=== PATIENT | male | born 1985 | race Caucasian/White ===

== ENCOUNTER 2022-10-29 13:34 | Inpatient (IN) | payer MEDICAID, SELFPAY ==
[2022-10-29 13:35] VITALS: BP 110/97; PULSE 89; RESP 16; TEMP 36.8; O2SAT 98; BMI 28.5
--- NOTE | 2022-10-29 14:55 | EDS_ITS ---
HPI History of Present Illness Chief Complaint: Substance Abuse Detail of Chief Complaint: Opiates, amphetamines, alcohol abuse and tobacco use Informant: patient and friend Onset/Context/Timing Onset: - (2 to 3 years) Context: Sudden Onset Timing: Continuous Quality: Documented in the HPI narrative Location: Not applicable Current Severity: Moderate Maximum Severity: Moderate Worsened by: Associated with the wrong friends Relieved by: Nothing Associated Symptoms Associated Symptoms: Positive for rash*; Negative for vomiting*, diarrhea*, fever*, seizure, tremor, palpatations, change in mental status, trauma, suicidal ideation or homicidal ideation Narrative Narrative: Patient is a 37-year-old male with history of opiate, alcohol and amphetamine abuse. Patient states he at times smokes it or injects and is even ingested depending on the drug. Patient states he returned to the wrong friends 2 to 3 years ago. He is from the [facility]. He has had increased problems over the last several months. He moved to [place] because friends in this area and family in this area moved. He went to [place] where there were [facility] members. According to a friend who is known him for 9 to 10 years states that his aunt purchased him a bus ticket back to [place]. He states he last used yesterday. He injected heroin left antecubital fossa. The last time he was tested for hepatitis and HIV was a while ago. Tests were negative. He does report increased darkness to his urine. He has not been told that he appears yellow. He is concerned that he has sores on his feet. He denies fever, chills night sweats. He denies ocular, visual or auditory symptoms. He denies cardiac or respiratory symptoms. He denies GI symptoms. He is presently on no medication. He admits to smoking 1 pack/day. He admits to drinking a 12 pack/day. Prior similar symptoms: Yes Recent Illness/Hospitalization: No [facility] Medical History (Updated 10/29/22 @ 15:10 by Sanju Carrillo) Anxiety Depression Allergy/AdvReac Type Severity Reaction Status Date / Time Penicillins Allergy Rash Verified 10/29/22 13:38 Surgical History no surgical history no surgical history Social History (Updated 10/29/22 @ 15:[address] Christopher Blackmon MD) household members: none housing: homeless Smoking Status: Current every day smoker tobacco type: cigarettes alcohol intake: current alcohol intake frequency: 3 or more drinks per day substance use type: heroin and amphetamines ROS ROS ED Constitutional Constitutional ED: Denies chills, fever(s), subjective, sweats or weight loss Eyes Eyes: Denies blurry vision, change in vision or diplopia ENT ENT ED: Denies ear pain, rhinorrhea or sore throat Cardiovascular Cardiovascular: Denies chest pain, palpitations or racing heartbeat Respiratory/Chest Respiratory/Chest: Denies cough, dyspnea or dyspnea on exertion Gastrointestinal Gastrointestinal: Denies abdominal pain, diarrhea, nausea or vomiting Genitourinary Genitourinary ED: Denies dysuria or urinary frequency Musculoskeletal Musculoskeletal: Denies arthralgias, back pain, myalgias or neck pain Integumentary Reports rash; Denies abscess or Abrasions Neurologic Neurologic: Denies headache(s), paresthesias or weakness Psychiatric Psychiatric: Reports depression and other Details: Patient states he has a history of depression. He has not been on antidepressants for some time. He is uncertain whether he ever was diagnosed with schizoaffective disorder. According to friend he has been bouncing around and has had difficulty holding jobs. ; Denies anxiety Hematologic/Lymphatic Hematologic/Lymphatic: Denies easy bleeding or easy bruising EXAM Physical Exam Const Vital Signs: 10/29/22 13:35 Temperature 98.2 F Temperature Source Temporal Pulse Rate 89 Respiratory Rate 16 Blood Pressure 110/97 H Blood Pressure Mean 101 Pulse Ox 98 Oxygen Delivery Method Room Air Positive well nourished, well developed and unkempt General Appearance ED: unkempt, well developed and NAD; Negative for pallor HEENT Reports moist mucous membranes HEENT Narrative: Head is atraumatic normocephalic. Ears normal. Nares patent. Posterior pharynx out erythema or exudate. Patient does have eschar left side of his face. There is no obvious rash or evidence of infection. Eyes PERRL and EOMs intact bilaterally Eyes Narrative: There is no nystagmus. General Eye ED: Negative for pale conjunctiva or scleral icterus Neck no lymphadenopathy, supple and no JVD Lymph Lymphatic: no lymphadenopathy noted and lymphadenopathy Chest Wall inspection of chest normal and palpation of chest normal Resp normal respiratory effort and clear to auscultation bilaterally Cardio regular rate, regular rhythm, S1 normal heart sound, S2 normal heart sound and no murmurs GI soft to palpation, non-tender, non-distended and no masses Auscultation: hypoactive bowel sounds Back/Spine no CVA tenderness Thoracic Spine / Upper Back: Negative for thoracic spinal tenderness Lumbar Spine / Lower Back: Negative for lumbar spinal tenderness Extremity Extremity Narrative: Patient has ruptured blisters with mild erythema medial side of the right foot. There is no induration, warmth, lymphangitis or lymphadenopathy. Neuro oriented x3, CN's II-XII intact bilaterally and no sensory deficits noted Karthik Coma Scale: document GCS findings Spontaneous Obeys Commands Oriented 15 Sensorium / Orientation: alert Speech: speech normal Psych thought process normal Appearance: unkempt Skin Skin Narrative: Previously described under the extremity portion of the chart. General Skin Exam: Negative for jaundice, pallor or scars MDM MDM MDM Narrative Medical decision making narrative: Patient will require significant resources since he is presently homeless without job. He does have significant issues regarding drug dependency and alcoholism. Addiction order set was initiated. Will contact hospitalist for admission. Patient is aware that the facility is smoke-free. He states he will comply because he needs help. There are no old records for review. Lab Data Attestation: I reviewed the patient's lab results. Lab results narrative: CBC is unremarkable. Comprehensive metabolic panel does reveal elevated AST and ALT of 79 and 90 respectively. Alk phos is slight elevated 150. A Monge is less 0.0. Tox is positive for cocaine and cannabinoids. There is no opiate's or amphetamines noted. Labs: Laboratory Results - last 24 hr 10/29/22 10/29/22 10/29/22 15:15 15:15 15:15 WBC 10.3 RBC 4.41 L Hgb 14.8 Hct 45.2 MCV 102.5 H MCH 33.6 H MCHC 32.7 RDW Std Deviation 47.3 H RDW Coeff of Cathy 12.4 Plt Count 124 L MPV 11.0 Immature Gran % (Auto) 0.300 Neut % (Auto) 58.1 Lymph % (Auto) 31.9 [place] % (Auto) 7.4 Eos % (Auto) 1.6 Baso % (Auto) 0.7 Absolute Neuts (auto) 6.0 Absolute Lymphs (auto) 3.29 Nucleated RBC % 0 Sodium 142 Potassium 4.5 Chloride 109 H Carbon Dioxide 30.0 Anion Gap 3 L BUN 15 Creatinine 0.70 Estim Creat Clear Calc 156.88 Est GFR (MDRD) Af Amer 165 Est GFR (MDRD) Non-Af 137 BUN/Creatinine Ratio 21.5 H Glucose 95 Calcium 9.0 Total Bilirubin 0.80 AST 79 H ALT 90 H Alkaline Phosphatase 157 H Total Protein 7.1 Albumin 3.4 Globulin 3.7 Albumin/Globulin Ratio 0.9 Urine Opiates Screen Urine Methadone Screen Ur Barbiturates Screen Ur Phencyclidine Scrn Ur Amphetamines Screen MDMA (Ecstasy) Screen U Benzodiazepines Scrn Urine Cocaine Screen U Cannabinoids Screen Ur Drug Screen Comment Ethyl Alcohol < 3.0 10/29/22 15:15 WBC RBC Hgb Hct MCV MCH MCHC RDW Std Deviation RDW Coeff of Cathy Plt Count MPV Immature Gran % (Auto) Neut % (Auto) Lymph % (Auto) [place] % (Auto) Eos % (Auto) Baso % (Auto) Absolute Neuts (auto) Absolute Lymphs (auto) Nucleated RBC % Sodium Potassium Chloride Carbon Dioxide Anion Gap BUN Creatinine Estim Creat Clear Calc Est GFR (MDRD) Af Amer Est GFR (MDRD) Non-Af BUN/Creatinine Ratio Glucose Calcium Total Bilirubin AST ALT Alkaline Phosphatase Total Protein Albumin Globulin Albumin/Globulin Ratio Urine Opiates Screen NEGATIVE Urine Methadone Screen NEGATIVE Ur Barbiturates Screen NEGATIVE Ur Phencyclidine Scrn NEGATIVE Ur Amphetamines Screen NEGATIVE MDMA (Ecstasy) Screen NEGATIVE U Benzodiazepines Scrn NEGATIVE Urine Cocaine Screen POSITIVE H U Cannabinoids Screen POSITIVE H Ur Drug Screen Comment Ethyl Alcohol Rhythm Strip Rhythm Strip: Sinus Rhythm Rate: 84 Ectopy: None Discharge Plan Dx/Rx/DC Orders Clinical Impression: Opiate abuse, continuous, Drug abuse, amphetamine type, Alcoholism, Tobacco use, Opiate dependence Disposition Disposition: Acute Care [facility]
[2022-10-29 15:24] LABS: Absolute Lymphocyte Count 3.29 X10^3/uL (0.83-4.51); Basophil# 0.07 X10^3/uL; Basophil% 0.7 % (0-1); Eosinophil# 0.17 X10^3/uL; Eosinophils% 1.6 % (0-5); Hematocrit 45.2 % (40-54); Hemoglobin 14.8 g/dL (13.0-16.5); Lymphocyte # 3.29 X10^3/ul (0.83-4.51); Lymphocyte % 31.9 % (19-41); Mean Corp Hgb Conc 32.7 g/dL (32-36); Mean Corpuscular Hgb 33.6 pg (27.0-32.0); Mean Corpuscular Volume 102.5 fL (80-94); Monocyte# 0.76 X10^3/uL; Monocyte% 7.4 % (0-10); NRBC Flagged by Analyzer 0 % (0-5); Neutrophil # 5.99 X10^3/uL (2.7-7.7); Neutrophil % 58.1 % (47-70); Platelet Count 124 K/mm3 (150-450); RBC Distribution Width CV 12.4 % (11.6-14.6); RBC Distribution Width SD 47.3 fl (35.1-43.9); Red Blood Count 4.41 M/mm3 (4.6-6.2); White Blood Count 10.3 K/mm3 (4.4-11.0)
[2022-10-29 15:39] LABS: Amphetamine Urine VISTA NEGATIVE (<1000 ng/mL); Barbiturate Urine VISTA NEGATIVE (< 200 ng/mL); Benzodiazepine Urine VISTA NEGATIVE (< 200 ng/mL); Cocaine Urine VISTA POSITIVE (< 300 ng/mL); Ecstacy Urine VISTA NEGATIVE (< 500 ng/mL); Methadone Urine VISTA NEGATIVE (< 300 ng/mL); PCP Urine VISTA NEGATIVE (< 25 ng/mL); THC Urine VISTA POSITIVE (< 50 ng/mL); Vista UDS pH Range 5
[2022-10-29 15:44] LABS: ALB/GLOB Ratio 0.9 RATIO (0.9-2.4); AST(SGOT) 79 U/L (15-37); Alanine Aminotransfer ALT/SGPT 90 U/L (16-61); Albumin, Serum 3.4 g/dL (3.2-5.0); Alkaline Phosphatase 157 U/L (45-117); Anion Gap 3 (5-15); BUN 15 mg/dL (7-18); BUN/Creat Ratio 21.5 RATIO (10-20); Chloride 109 mmol/L (98-107); EST Glomerular Filtration Rate 137 mL/min (>60); Est Glom Filt Rate - Afr Amer 165 mL/min (>60); Estimated Creatinine Clearance 156.88 ml/min; Globulin 3.7 g/dL (2.2-4.2); Glucose 95 mg/dL (74-106); Potassium 4.5 mmol/L (3.5-5.1); Protein, Total 7.1 g/dL (6.4-8.2); Sodium Level 142 mmol/L (136-145)
[2022-10-29 15:55] LABS: Alcohol, Blood (Medical)-Serum < 3.0 mg/dL
--- NOTE | 2022-10-29 16:17 | NURSING ---
MED SURG FABIENNE SUBSTANCE ABUSE, ALCOHOLISM, OPIATES, AMPHETAMINES
--- NOTE | 2022-10-29 16:30 | PCM.HP.STD ---
[facility] - General General Date of Service: 10/29/22 Chief Complaint: requesting treatment for drug detoxification. HPI Narrative SAMANTHA JONES, is a 37 M who presents seeking treatment for drug and alcohol withdrawal. Patient's uses fentanyl or heroin, amphetamines, cocaine and alcohol. His last use was 24 hours ago. States that he uses opiates daily and most days drinks about a 12 pack/day but goes days without drinking any alcohol. States that the days that he does not drink alcohol and he will have a craving for sweets but that would be the worst of it according to him. Patient was recently [place] where he was actively using all these medications basically whenever he can get his hands on. I got a one-way bus ticket up to [place], where he is originally from and his plan was to come into the hospital and to get reestablished with [facility] and going to the residential program. He never spoke with [facility] nor anyone else about this plan. 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 He states currently, he is having some restless legs, rhinitis, abdominal cramps. [facility] Medical History (Updated 10/29/22 @ 16:[address] Gerardo Overton DO) Alcohol abuse Anxiety Depression Polysubstance abuse Home Medications NK 10/29/22 [History Last Taken Unknown] Allergy/AdvReac Type Severity Reaction Status Date / Time Penicillins Allergy Rash Verified 10/29/22 13:38 no significant family history Surgical History no surgical history Social History household members: none housing: homeless Smoking Status: Current every day smoker tobacco type: cigarettes alcohol intake: current alcohol intake frequency: 3 or more drinks per day substance use type: heroin and amphetamines ROS ROS Claudy Has some pain in his left leg. Does have some wounds on his right foot that he is not sure how he sustained the.. Patient states that he injects into his neck as well as his left antecubital fossa. All review of systems were negative except as mentioned above in the history of present illness and the other review of systems. Vital Signs Vital Signs Vital Signs: 10/29/22 13:35 Temperature 36.8 C Temperature Source Temporal Pulse Rate 89 Respiratory Rate 16 Blood Pressure 110/97 H Blood Pressure Mean 101 Pulse Ox 98 Oxygen Delivery Method Room Air Weight Weight: 92.986 kg Body Mass Index (BMI) 28.5 Physical Exam Const alert and no apparent distress Constitutional Narrative: Anxious. Afebrile. Eyes Eyes Narrative: No conjunctival hemorrhages. No icterus Neck no lymphadenopathy Neck Narrative: No wound on his neck. No lymphadenopathy. Resp normal respiratory effort, no retractions, no use of accessory muscles and clear to auscultation bilaterally Cardio regular rate, regular rhythm, S1 normal heart sound and S2 normal heart sound GI normal to inspection, nondistended, normoactive bowel sounds, soft to palpation, non-tender and non-distended Extremity normal to inspection Skin Skin Narrative: Opened blisters on his medial right foot. Some surrounding erythema around the arch of his foot from some of these wounds. Does have some dry skin in between his toes on his right foot. No splinter hemorrhages. Results Lab / Micro Data Result Diagrams: 10/29/22 15:15 10/29/22 15:15 Labs: Laboratory Results - last 24 hr 10/29/22 15:15: WBC 10.3, RBC 4.41 L, Hgb 14.8, Hct 45.2, MCV 102.5 H, MCH 33.6 H, MCHC 32.7, RDW Std Deviation 47.3 H, RDW Coeff of Cathy 12.4, Plt Count 124 L, MPV 11.0, Immature Gran % (Auto) 0.300, Neut % (Auto) 58.1, Lymph % (Auto) 31.9, [place] % (Auto) 7.4, Eos % (Auto) 1.6, Baso % (Auto) 0.7, Absolute Neuts (auto) 6.0, Absolute Lymphs (auto) 3.29, Nucleated RBC % 0 10/29/22 15:15: Sodium 142, Potassium 4.5, Chloride 109 H, Carbon Dioxide 30.0, Anion Gap 3 L, BUN 15, Creatinine 0.70, Estim Creat Clear Calc 156.88, Est GFR (MDRD) Af Amer 165, Est GFR (MDRD) Non-Af 137, BUN/Creatinine Ratio 21.5 H, Glucose 95, Calcium 9.0, Total Bilirubin 0.80, AST 79 H, ALT 90 H, Alkaline Phosphatase 157 H, Total Protein 7.1, Albumin 3.4, Globulin 3.7, Albumin/Globulin Ratio 0.9 10/29/22 15:15: Ethyl Alcohol < 3.0 10/29/22 15:15: Urine Opiates Screen NEGATIVE, Urine Methadone Screen NEGATIVE, Ur Barbiturates Screen NEGATIVE, Ur Phencyclidine Scrn NEGATIVE, Ur Amphetamines Screen NEGATIVE, MDMA (Ecstasy) Screen NEGATIVE, U Benzodiazepines Scrn NEGATIVE, Urine Cocaine Screen POSITIVE H, U Cannabinoids Screen POSITIVE H, Ur Drug Screen Comment Rhythm Strip Rhythm Strip: Sinus Rhythm Rate: 84 Ectopy: None Assessment & Plan Assessment/Plan (1) Opiate withdrawal: PLAN: Initiate buprenorphine taper. As well as additional medication to help with the somatic complaints with withdrawal. Consult addiction medicine to facilitate outpatient program. Patient has no insurance and has not spoken to [facility] directly prior to his arrival. He was under the assumption that he would go into a residential program. I told him I am not sure that that would could actually be worked out given his circumstances but we will see what [facility] people can arrange. Patient kept on saying that [place] is the best place for him to be sober and for him to do this programs. I told him that it is good that he is recognizing he has a problem but I told him I am concerned that some of his statements are could be empty and that he needs to show us by working with the staff and being committed to his sobriety and primarily needs to convince himself that he can do this. (2) Alcohol abuse: PLAN: Patient goes days without drinking, I am concerned about him going through alcohol withdrawal so would not be initiating a phenobarbital taper However, we will start him on a multivitamin (3) Polysubstance abuse: PLAN: Complicates his chance for recovery and sobriety as patient was using whatever drugs he can get his hands on (4) Wound of foot: PLAN: Appear to be more blisters on his right foot that are unrelieved. Does have some surrounding erythema from 1. No clear evidence of cellulitis at this time. Would hold off on antibiotics unless erythema gets worse. I am not concerned about this being infectious embolization. This local wound care with dry dressing for now. PLAN: Plan VTE prophylaxis not indicated. Encourage ambulation. Low risk. Charges/Coding Visit Charges Inpatient E&M: 17169 Init Hosp L2
[2022-10-29 16:33] VITALS: BP 110/53; PULSE 75; RESP 16; TEMP 36.6; O2SAT 97
[2022-10-29 17:50] VITALS: BP 118/56; PULSE 77; RESP 16; TEMP 36.7
[2022-10-29 17:58] VITALS: BMI 27.8
[2022-10-29] MEDS: Ibuprofen 600 MG Tablet PO (18:25)
[2022-10-29] MEDS: hydrOXYzine PAM 25 MG Capsule 50 MG PO (19:42)
[2022-10-29] MEDS: Acetaminophen 500 MG Tablet PO (19:42)
[2022-10-29] MEDS: Methocarbamol 750 MG Tablet 1500 MG PO (19:43)
[2022-10-29] MEDS: traZODone 100 MG Tablet PO (19:43)
[2022-10-29] MEDS: Buprenorphine HCl 2 MG TAB.SUBL SL (19:48)
[2022-10-29 20:46] VITALS: BP 93/50; PULSE 84; RESP 16; TEMP 36.8; O2SAT 95
[2022-10-29] MEDS: 0.9% Saline Lock 10 ML Syringe IV (20:52)
[2022-10-29] MEDS: Ensure Plus High Protein 120 ML LIQUID PO (20:53)
[2022-10-30 01:00] VITALS: BP 126/59; PULSE 67; RESP 18; TEMP 36.4; O2SAT 97
[2022-10-30] MEDS: Gabapentin 300 MG Capsule PO ×2 (01:08→10:34)
[2022-10-30] MEDS: cloNIDine HCl 0.1 MG Tablet PO ×3 (01:08→18:30)
[2022-10-30] MEDS: Ibuprofen 600 MG Tablet PO ×2 (04:03→15:11)
[2022-10-30] MEDS: hydrOXYzine PAM 25 MG Capsule 50 MG PO ×2 (04:03→18:31)
[2022-10-30] MEDS: Buprenorphine HCl 2 MG TAB.SUBL SL ×3 (04:05→20:36)
[2022-10-30 04:09] VITALS: BP 105/54; PULSE 66; RESP 16; TEMP 36.7; O2SAT 96
[2022-10-30] MEDS: Multivitamins,Therapeutic Tablet 1 TABLET PO (08:27)
[2022-10-30] MEDS: Ensure Plus High Protein 120 ML LIQUID PO ×3 (08:28→18:33)
[2022-10-30 08:30] VITALS: BP 116/41; PULSE 78; RESP 18; TEMP 36.6; O2SAT 94
[2022-10-30] MEDS: Methocarbamol 750 MG Tablet 1500 MG PO ×2 (08:34→18:33)
[2022-10-30] MEDS: Acetaminophen 500 MG Tablet PO ×2 (08:54→18:30)
[2022-10-30] MEDS: FLU VACC QS2022-23(6MOS UP)/PF 60 MCG/0.5 ML SYRINGE IM (09:49)
[2022-10-30] MEDS: Phenobarbital 32.4 MG Tablet 64.8 MG PO ×3 (11:44→18:30)
--- NOTE | 2022-10-30 11:55 | PN.HOSP_ITS ---
Subjective Subjective Doing well, no issues overnight. Cina score of 4, CIWA score 4 Objective Data Objective Data Vital Signs: Vital Signs Temp Pulse Resp BP Pulse Ox O2 Del Method 97.9 F 78 18 116/41 L 94 Room Air 10/30/22 08:30 10/30/22 08:30 10/30/22 08:30 10/30/22 08:30 10/30/22 08:30 10/30/22 08:30 Oxygen Delivery Method Room Air Weight: 199 lb 15.348 oz Body Mass Index (BMI) 27.8 Intake & Output: Intake and Output for Last 24 Hours 10/29/22 10/30/22 10/31/22 03:59 03:59 03:59 Intake Total 500 / 500 Balance 500 / 500 Lab / Micro Data Result Diagrams: 10/29/22 15:15 10/29/22 15:15 Labs: Laboratory Results - last 24 hr 10/29/22 15:15: WBC 10.3, RBC 4.41 L, Hgb 14.8, Hct 45.2, MCV 102.5 H, MCH 33.6 H, MCHC 32.7, RDW Std Deviation 47.3 H, RDW Coeff of Acthy 12.4, Plt Count 124 L, MPV 11.0, Immature Gran % (Auto) 0.300, Neut % (Auto) 58.1, Lymph % (Auto) 31.9, [place] % (Auto) 7.4, Eos % (Auto) 1.6, Baso % (Auto) 0.7, Absolute Neuts (auto) 6.0, Absolute Lymphs (auto) 3.29, Nucleated RBC % 0 10/29/22 15:15: Sodium 142, Potassium 4.5, Chloride 109 H, Carbon Dioxide 30.0, Anion Gap 3 L, BUN 15, Creatinine 0.70, Estim Creat Clear Calc 156.88, Est GFR (MDRD) Af Amer 165, Est GFR (MDRD) Non-Af 137, BUN/Creatinine Ratio 21.5 H, Glucose 95, Calcium 9.0, Total Bilirubin 0.80, AST 79 H, ALT 90 H, Alkaline Phosphatase 157 H, Total Protein 7.1, Albumin 3.4, Globulin 3.7, Albumin/Globulin Ratio 0.9 10/29/22 15:15: Ethyl Alcohol < 3.0 10/29/22 15:15: Urine Opiates Screen NEGATIVE, Urine Methadone Screen NEGATIVE, Ur Barbiturates Screen NEGATIVE, Ur Phencyclidine Scrn NEGATIVE, Ur Amphetamines Screen NEGATIVE, MDMA (Ecstasy) Screen NEGATIVE, U Benzodiazepines Scrn NEGATIVE, Urine Cocaine Screen POSITIVE H, U Cannabinoids Screen POSITIVE H, Ur Drug Screen Comment Rhythm Strip Rhythm Strip: Sinus Rhythm Rate: 84 Ectopy: None Physical Exam Narrative General: Alert, Oriented x3, Cooperative, No apparent distress HEENT: Atraumatic, PERRLA, EOMI, Normocephalic Oral: Moist Mucosa Neck: Supple, No JVD Lungs: Clear to auscultation, Normal air movement, No rhonchi, No wheeze, No rales Cardiovascular: Regular rate, Regular Rhythm, Normal S1, Normal S2, No murmurs Abdomen: Soft, Non Tender, Non-Distended, No Hepato-splenomegaly Extremities: No edema, Capillary Refill Less than 3 Seconds Skin: Blisters on his foot do not appear infected Musculoskeletal: No Tenderness to Palpation of Joints or Extremities Neurological: Cranial nerves II-XII grossly intact, Motor Exam 5/5 strength th roughout, Sensory exam intact to light touch and pain Psych/Mental Status: Anxious, restless Assessment & Plan Assessment/Plan (1) Opiate withdrawal: PLAN: Continue with the opiate withdrawal protocol We will have him follow-up with [facility] for possible inpatient versus outpatient rehab (2) Alcohol abuse: PLAN: Continue with the alcohol withdrawal protocol (3) Polysubstance abuse: PLAN: Complicates his chance for recovery and sobriety as patient was using whatever drugs he can get his hands on (4) Wound of foot: PLAN: Appear to be more blisters on his right foot that are unrelieved. Does have some surrounding erythema from 1. No clear evidence of cellulitis at this time. Would hold off on antibiotics unless erythema gets worse. I am not concerned about this being infectious embolization. This local wound care with dry dressing for now. PLAN: Plan VTE prophylaxis not indicated. Encourage ambulation. Low risk. Charges/Coding Visit Charges Inpatient E&M: 38122 Subs Hosp L2
--- NOTE | 2022-10-30 13:52 | CASEMGMT ---
Social Work SW in to see pt and provide resources for self pay. SW gave pt medicaid application and information for [facility]. Pt agreeable to completing medicaid application and will give to nurse when finished. Nurse will return application to SW to be faxed to [facility]. JUSTIN Jimenez
[2022-10-30 14:50] VITALS: BP 118/69; PULSE 88; RESP 17; TEMP 36.9; O2SAT 97
--- NOTE | 2022-10-30 16:07 | CHAPLAIN ---
Type of Pastoral Visit _x__ Initial Visit ___ Follow-up Visit ___ On-call Visit ___ General Patient Visit ___ Spiritual Assessment ___ Family Conference ___ Bereavement ___ Rapid Response ___ Code Blue ___ Other (describe below) Pastoral Care Referral From _x__ Patient ___ Family ___ Nurse ___ Physician ___ Keg Header ___ Infirmary Attendant ___ Other (describe below) Sacrament/Intervention _x__ Active listening ___ Anointing ___ Confucianist ___ Bereavement ___ Communion _x__ Adenike exploration ___ _x__ Life review _x__ Prayer ___ Reconciliation ___ Sacrament of Sick _x__ Supportive presence ___ Wedding ___ Other (describe below) Pastoral Comments at first attempt the patient had lunch tray and several people had just been in his room; pt asked for a few minutes to eat lunch and have a break from people; on return to patient room he was eager to have this primary school teacher sit and talk with him; pt gives some life review and then about reading portions of the Bible that had been given to him by staff; pt had questions about the things he read; pt identifies as a Alevism and has been for his life, with interest in developing his adenike; however throughout much of the conversation the patient had difficulty getting out some words and thoughts; pt had appeared to be resisting sleep and closed his eyes often; this primary school teacher offered to say a prayer, finish this conversation today, and return tomorrow; pt was agreeable to this plan and desires follow up visit
[2022-10-30 20:31] VITALS: BP 117/66; PULSE 89; RESP 18; TEMP 36.7; O2SAT 96
[2022-10-31] MEDS: Phenobarbital 32.4 MG Tablet 64.8 MG PO ×7 (00:19→22:44)
[2022-10-31] MEDS: Ensure Plus High Protein 120 ML LIQUID PO ×3 (00:23→13:49)
[2022-10-31 03:55] VITALS: BP 126/67; PULSE 83; RESP 18; TEMP 36.7; O2SAT 95
[2022-10-31] MEDS: Buprenorphine HCl 2 MG TAB.SUBL SL ×3 (04:07→20:09)
[2022-10-31] MEDS: Multivitamins,Therapeutic Tablet 1 TABLET PO (08:41)
[2022-10-31] MEDS: Ibuprofen 600 MG Tablet PO (08:42)
[2022-10-31 08:49] VITALS: BP 123/69; PULSE 88; RESP 18; TEMP 36.9; O2SAT 95
--- NOTE | 2022-10-31 09:34 | PCM.PN.HOSP ---
Subjective Subjective No issues overnight, Cina score of 3 and a CIWA score of 8 Objective Data Objective Data Vital Signs: Vital Signs Temp Pulse Resp BP Pulse Ox O2 Del Method 98.4 F 88 18 123/69 H 95 Room Air 10/31/22 08:49 10/31/22 08:49 10/31/22 08:49 10/31/22 08:49 10/31/22 08:49 10/31/22 08:49 Oxygen Delivery Method Room Air Weight: 199 lb 15.348 oz Body Mass Index (BMI) 27.8 Intake & Output: Intake and Output for Last 24 Hours 10/30/22 10/31/22 11/01/22 03:59 03:59 03:59 Intake Total 1500 / 1500 400 / 400 Balance 1500 / 1500 400 / 400 Lab / Micro Data Result Diagrams: 10/29/22 15:15 10/29/22 15:15 Rhythm Strip Rhythm Strip: Sinus Rhythm Rate: 84 Ectopy: None Physical Exam Narrative General: Alert, Oriented x3, Cooperative, No apparent distress HEENT: Atraumatic, PERRLA, EOMI, Normocephalic Oral: Moist Mucosa Neck: Supple, No JVD Lungs: Clear to auscultation, Normal air movement, No rhonchi, No wheeze, No rales Cardiovascular: Regular rate, Regular Rhythm, Normal S1, Normal S2, No murmurs Abdomen: Soft, Non Tender, Non-Distended, No Hepato-splenomegaly Extremities: No edema, Capillary Refill Less than 3 Seconds Skin: Blisters on his foot do not appear infected Musculoskeletal: No Tenderness to Palpation of Joints or Extremities Neurological: Cranial nerves II-XII grossly intact, Motor Exam 5/5 strength throughout, Sensory exam intact to light touch and pain Psych/Mental Status: Anxious, restless Assessment & Plan Assessment/Plan (1) Opiate withdrawal: PLAN: Continue with the opiate withdrawal protocol We will have him follow-up with [facility] for possible inpatient versus outpatient rehab (2) Alcohol abuse: PLAN: Continue with the alcohol withdrawal protocol (3) Polysubstance abuse: PLAN: Complicates his chance for recovery and sobriety as patient was using whatever drugs he can get his hands on (4) Wound of foot: PLAN: Continue to monitor, these do not appear infected and he room A-fib while PLAN: Plan VTE prophylaxis not indicated. Encourage ambulation. Low risk. Charges/Coding Visit Charges Inpatient E&M: 77314 Subs Hosp L2
[2022-10-31] MEDS: cloNIDine HCl 0.1 MG Tablet PO (13:45)
[2022-10-31] MEDS: Acetaminophen 500 MG Tablet PO ×2 (13:52→20:09)
[2022-10-31] MEDS: Gabapentin 300 MG Capsule PO (13:52)
[2022-10-31] MEDS: Methocarbamol 750 MG Tablet 1500 MG PO ×2 (13:52→22:44)
[2022-10-31 13:55] VITALS: BP 131/76; PULSE 78; RESP 18; TEMP 36.8; O2SAT 96
[2022-10-31] MEDS: Glycerin/Hypromellose/PEG400 15 ml Bottle 2 DRP EACH EYE (14:02)
--- NOTE | 2022-10-31 15:39 | CHAPLAIN ---
Type of Pastoral Visit ___ Initial Visit _x__ Follow-up Visit ___ On-call Visit ___ General Patient Visit ___ Spiritual Assessment ___ Family Conference ___ Bereavement ___ Rapid Response ___ Code Blue ___ Other (describe below) Pastoral Care Referral From _x__ Patient ___ Family ___ Nurse ___ Physician ___ Handcrew Foreman ___ Digital Media Analyst ___ Other (describe below) Sacrament/Intervention _x__ Active listening ___ Anointing ___ Presybeterian ___ Bereavement ___ Communion _x__ Adenike exploration ___ ___ Life review _x__ Prayer ___ Reconciliation ___ Sacrament of Sick _x__ Supportive presence ___ Wedding ___ Other (describe below) Pastoral Comments follow up to patient; pt wanted to read some of the Bible with me and he had a few questions; pt welcomed the visit to also give calm from anxiety; pt is talkative; pt welcomed prayer
[2022-10-31 20:00] VITALS: BP 119/80; PULSE 65; RESP 14; TEMP 36.8; O2SAT 98
[2022-11-01] MEDS: Phenobarbital 32.4 MG Tablet 64.8 MG PO ×2 (02:56→06:44)
[2022-11-01] MEDS: Acetaminophen 500 MG Tablet PO ×2 (02:59→06:44)
[2022-11-01 03:29] VITALS: BP 145/87; PULSE 91; RESP 14; TEMP 36.9; O2SAT 96
[2022-11-01 08:52] VITALS: BP 132/67; PULSE 85; RESP 18; TEMP 37; O2SAT 96
[2022-11-01] MEDS: Ensure Plus High Protein 120 ML LIQUID PO (09:07)
[2022-11-01] MEDS: Gabapentin 300 MG Capsule PO (09:08)
[2022-11-01] MEDS: Multivitamins,Therapeutic Tablet 1 TABLET PO (09:08)
[2022-11-01] MEDS: Buprenorphine HCl 2 MG TAB.SUBL SL (09:08)
--- NOTE | 2022-11-01 09:36 | DCINST_ITS ---
Discharge Instructions Diet Discharge Diet: No restrictions Activity Discharge Activity: Return to Normal Activity Dressing / Incision Call your doctor if you observe: Fever of 101 or Higher, Shortness of breath, Dizziness, Fainting spells, Swelling in the ankles, Chest pain and Increased palpitations (irregular heartbeat) Follow Up Care Test Results: Test results from this visit will be discussed in further detail at your follow- up appointment, if applicable. Discharge Plan Admission Admit Date/Time: 10/29/22 16:27 Attending Provider: Chris Morrison Primary Care Provider: Care Physician,Elizabeth Primary Consulting Providers: Gerardo Overton Discharge Orders/Prescriptions Prescriptions: No Action NK Referrals / Follow Up: Care Physician,No Primary [Primary Care Provider] - NOT,DEFINED [Non-Staff] - Disposition Disposition (needs filled in before D/C Order can be placed): Home, Self Care
--- NOTE | 2022-11-01 09:38 | DS.PCM_ITS ---
Providers Date of Admission: 10/29/22 Primary Care Physician: No Primary Care Phys Reason For Visit: OPIATE WD Diagnosis Discharge Diagnosis (1) Opiate withdrawal: Status: Acute Code(s): F11.93 - Opioid use, unspecified with withdrawal Plan: Continue with the opiate withdrawal protocol We will have him follow-up with [facility] for possible inpatient versus outpatient rehab (2) Alcohol abuse: Status: Acute Code(s): F10.10 - Alcohol abuse, uncomplicated Plan: Continue with the alcohol withdrawal protocol (3) Polysubstance abuse: Status: Acute Code(s): F19.10 - Other psychoactive substance abuse, uncomplicated Plan: Complicates his chance for recovery and sobriety as patient was using whatever drugs he can get his hands on (4) Wound of foot: Status: Acute Code(s): S91.309A - Unspecified open wound, unspecified foot, initial encounter Plan: Continue to monitor, these do not appear infected and he room A-fib while Plan VTE prophylaxis not indicated. Encourage ambulation. Low risk. Medications at Discharge Home Medications NK 10/29/22 Hospital Course Operations None Procedures None Summary of Care Provided Minutes Spent on Discharge: 38 Hospital Course: Per HPI: SAMANTHA JONES, is a 37 M who presents seeking treatment for drug and alcohol withdrawal.? Patient's uses fentanyl or heroin, amphetamines, cocaine and alcohol.? His last use was 24 hours ago.? States that he uses opiates daily and most days drinks about a 12 pack/day but goes days without drinking any alcohol.? States that the days that he does not drink alcohol and he will have a craving for sweets but that would be the worst of it according to him.? Patient was recently [place] where he was actively using all these medications basically whenever he can get his hands on.? I got a one-way bus ticket up to [place], where he is originally from and his plan was to come into the hospital and to get reestablished with [facility] and going to the residential program.? He never spoke with [facility] nor anyone else about this plan.? 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 He states currently, he is having some restless legs, rhinitis, abdominal cramps. Hospital Course: 1. Opiate withdrawal/alcohol withdrawal/polysubstance abuse?37-year-old male presents to the hospital with polysubstance abuse with snorting, injecting heroin/fentanyl as well as alcohol use presents for detox. He completed the opiate withdrawal protocol without any significant issues and he met with [facility] who recommended inpatient rehab which she will be discharged to today. I discussed with him the plan for discharge he expressed understanding of the risk and benefits of going and would like to go today. He was started on the alcohol withdrawal protocol secondary to the fact that he did admit to drinking though he states that he had discontinued drinking several days prior to his admission. 2. Right foot wounds?does not appear to be infected, they are blisters that have been unroofed and there is surrounding erythema but there is no fevers and the wound care nurse evaluated and both of us concur that there does not appear to be any sign of active infection Physical Exam Narrative General: Alert, Oriented x3, Cooperative, No apparent distress HEENT: Atraumatic, PERRLA, EOMI, Normocephalic Oral: Moist Mucosa Neck: Supple, No JVD Lungs: Clear to auscultation, Normal air movement, No rhonchi, No wheeze, No rales Cardiovascular: Regular rate, Regular Rhythm, Normal S1, Normal S2, No murmurs Abdomen: Soft, Non Tender, Non-Distended, No Hepato-splenomegaly Extremities: No edema, Capillary Refill Less than 3 Seconds Skin: Blisters on his foot do not appear infected Musculoskeletal: No Tenderness to Palpation of Joints or Extremities Neurological: Cranial nerves II-XII grossly intact, Motor Exam 5/5 strength throughout, Sensory exam intact to light touch and pain Psych/Mental Status: Anxious, restless Weight / BMI Weight Weight: 199 lb 15.348 oz Body Mass Index (BMI) 27.8 ABG / Lab / Microbiology Data Result Diagrams: 10/29/22 15:15 10/29/22 15:15 D/C Instructions Discharge Diet: No restrictions Call your doctor if you observe: Fever of 101 or Higher, Shortness of breath, Dizziness, Fainting spells, Swelling in the ankles, Chest pain and Increased palpitations (irregular heartbeat) Meaningful Use Info Meaningful Use Diagnoses (Choose all that apply): None applicable Discharge Plan Admission Admit Date/Time: 10/29/22 16:27 Attending Provider: Chris Morrison Primary Care Provider: Care Physician,No Primary Consulting Providers: Gerardo Overton Discharge Orders/Prescriptions Prescriptions: No Action NK Referrals / Follow Up: Care Physician,No Primary [Primary Care Provider] - NOT,DEFINED [Non-Staff] - Disposition Disposition (needs filled in before D/C Order can be placed): Home, Self Care Charges/Coding Visit Charges Inpatient E&M: 04307 Disch Hosp >30min
--- NOTE | 2022-11-01 09:38 | ADDICTION ---
This science writer met with PT to conduct ASAM, MSE, AUDIT assessments and to plan for d/c. PT A+Ox4 and participated actively. All assessments completed, faxed to [facility] and placed in PT's chart. PT plans to f/u with residential treatment at [facility] for follow-up treatment services. PT did not indicate a need for transportation post d/c from [facility].
== END 2022-11-01 11:04 | disposition home or self-care (01) | DRG 897 ==
LOC: ED 15:24 → MS3 16:32
PROVIDERS: Emergency Provider Emergency Medicine; Visit Provider Family Medicine
DX: F11.23 Opioid dependence with withdrawal (principal); F10.20 Alcohol dependence, uncomplicated; F15.10 Other stimulant abuse, uncomplicated; S90.821A Blister (nonthermal), right foot, initial encounter; F17.210 Nicotine dependence, cigarettes, uncomplicated; Z23 Encounter for immunization; X58.XXXA Exposure to other specified factors, initial encounter; Z59.00 Homelessness unspecified
CPT/HCPCS: 80053; 80307; 82077; 85025; 97802; 99283; 90686; A4216

== ENCOUNTER 2022-11-05 16:45 | Emergency (ER) | payer MEDICAID, SELFPAY ==
[2022-11-05 16:46] VITALS: BP 122/58; PULSE 76; RESP 14; TEMP 36.1; O2SAT 100; BMI 30.7
--- NOTE | 2022-11-05 17:43 | EX.ED.DYSGE1 ---
HPI History of Present Illness Chief Complaint: Cellulitis Narrative Narrative: 37-year-old male presenting for foot wounds. He states these are not new and has had them for about a week. He was in the hospital recently for opioid detox. He states has been walking a lot. He is currently at [facility]. He states he has tried everything he can do to get his wounds to heal. He describes multiple wounds on the right and left feet. Denies any drainage. He has been covering these with multiple Band-Aids. He has been soaking his feet he states. He does not have any systemic signs or symptoms. [facility] Medical History Alcohol abuse Anxiety Depression Polysubstance abuse Home Medications doxycycline hyclate 100 mg capsule 100 mg PO DAILY #20 caps 11/05/22 [Rx Last Taken Unknown] naproxen 500 mg tablet (Naprosyn) 500 mg PO BID #20 tabs 11/05/22 [Rx Last Taken Unknown] Allergy/AdvReac Type Severity Reaction Status Date / Time Penicillins Allergy Rash Verified 11/05/22 16:46 Social History household members: none housing: homeless Smoking Status: Current every day smoker tobacco type: cigarettes alcohol intake: current alcohol intake frequency: 3 or more drinks per day substance use type: heroin and amphetamines ROS ROS ED Constitutional Constitutional ED: Denies chills, fever(s) or sweats Eyes Eyes: Denies blurry vision or change in vision ENT ENT ED: Denies ear pain or sore throat Cardiovascular Cardiovascular: Denies chest pain, palpitations or racing heartbeat Respiratory/Chest Respiratory/Chest: Denies cough, dyspnea or sputum Gastrointestinal Gastrointestinal: Denies abdominal pain, constipation, diarrhea, nausea or vomiting Genitourinary Genitourinary ED: Denies dysuria, hematuria or urinary frequency Musculoskeletal Musculoskeletal: Denies arthralgias, myalgias or neck pain Integumentary Reports rash and other Details: Foot wounds ; Denies abscess or Abrasions Neurologic Neurologic: Denies headache(s), paresthesias or weakness Psychiatric Psychiatric: Denies anxiety, depression, suicidal ideation or suicidal thoughts Endocrine Endocrinology: Denies polydipsia or polyuria EXAM Physical Exam Const Vital Signs: 11/05/22 16:46 Temperature 97 F L Temperature Source Temporal Pulse Rate 76 Respiratory Rate 14 Blood Pressure 122/58 H Blood Pressure Mean 79 Pulse Ox 100 Oxygen Delivery Method Room Air Positive well nourished HEENT Reports moist mucous membranes Eyes PERRL and EOMs intact bilaterally Neck no lymphadenopathy Chest Wall inspection of chest normal and palpation of chest normal Resp normal respiratory effort and clear to auscultation bilaterally Auscultation: Negative for rales, rhonchi or wheezes Neuro oriented x3 and CN's II-XII intact bilaterally Psych mental status grossly normal Skin Skin Narrative: Right foot: Right foot has multiple circular areas on the medial aspect of skin breakdown with blistering. There is a small area on the fourth toe distally that has an abrasion. No crepitance. No bony tenderness. No lymphangitic streaking. There are some localized erythema around these wounds. Right foot neurovascular intact brisk cap refill to all 5 toes Left foot: Small superficial abrasions to the distal toes and the right medial foot. No lymphangitic streaking. No signs of cellulitis. Left foot neurovascular intact brisk cap refill to all 5 toes. MDM MDM MDM Narrative Medical decision making narrative: Patient presenting with wounds to the bilateral feet. He states he does walk a lot. He has been trying to handle this at home. His right foot does show some signs of infection secondary to blistering. He will be started on doxycycline. I gave him orthopedic follow-up that way these can be managed and he can go to care if needed. He was amenable to this. He was given Naprosyn for pain due to history of opioid abuse. Impression: 1. Bilateral foot wounds Lab Data Attestation: I reviewed the patient's lab results. Discharge Plan Triage Chief Complaint: Cellulitis ED Provider: Deni Rodriguez Dx/Rx/DC Orders Clinical Impression: Wound of foot Instructions: Cellulitis Dc, ED Wound Care Prescriptions: New doxycycline hyclate 100 mg capsule 100 mg PO DAILY Qty: 20 0RF naproxen [Naprosyn] 500 mg tablet 500 mg PO BID Qty: 20 0RF Primary Care Provider: Care Physician,No Primary Referrals: Familia Rahman DPM [Med Staff - Active Staff] - As soon as possible Care Physician,No Primary [Primary Care Provider] - Disposition Disposition: Home, Self Care
[2022-11-05] MEDS: Doxycycline 100 MG CAPSULE PO (17:48)
== END 2022-11-05 18:05 | disposition home or self-care (01) ==
LOC: ED 18:02
PROVIDERS: Emergency Provider Student in an Organized Health Care Education/Training Program; Visit Provider Student in an Organized Health Care Education/Training Program
DX: S91.302A Unspecified open wound, left foot, initial encounter (principal); S91.301A Unspecified open wound, right foot, initial encounter; Z59.00 Homelessness unspecified; X50.9XXA Other and unspecified overexertion or strenuous movements or postures, initial encounter
CPT/HCPCS: 99283